=== PATIENT | male | born 1955 | race Caucasian/White ===

== ENCOUNTER 2018-03-16 00:26 | Emergency (ER) | payer OTHER ==
[2018-03-16] MEDS ORDERED: HYDROcodone/Acetaminophen 5/325 mg Tablet ONE (00:59)
--- NOTE | 2018-03-16 07:52 | RAD ---
LEFT SHOULDER 3 VIEWS: DATE: 03/16/18. COMPARISON: None. HISTORY: Pain. FINDINGS: There is joint space narrowing of the acromioclavicular interspace with superior osteophyte formation , primarily involving the distal clavicle. No widening of the coracoclavicular interspace. No acute fracture. 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 No acute fracture or disloc ation. POS: [facility]
== END 2018-03-16 01:20 | disposition home or self-care (01) ==
LOC: SCSER 00:26
DX: M25.512 Pain in left shoulder (principal); Z71.6 Tobacco abuse counseling; F17.210 Nicotine dependence, cigarettes, uncomplicated; E03.9 Hypothyroidism, unspecified; K21.9 Gastro-esophageal reflux disease without esophagitis; I10 Essential (primary) hypertension
CPT/HCPCS: 99406

== ENCOUNTER 2018-03-19 14:01 | Emergency (ER) | payer OTHER ==
[2018-03-19] MEDS ORDERED: Ondansetron ODT 8 MG TAB ONE (14:33)
[2018-03-19 14:58] LABS: #Eosinphils 0.2 thou/uL (0.0-0.7); #Lymphocytes 0.9 thou/uL (1.20-3.40); #Monocytes 0.9 thou/uL (0.11-0.59); #Neutrophils 5.4 thou/uL (1.40-6.50); %Basophils 0.4 % (0.0-1.0); %Eosinophils 3.1 % (0.0-10.0); %Lymphocytes 12.1 % (21.0-51.0); %Monocytes 12.5 % (0.0-10.0); %Neutrophils 71.9 % (42.0-75.0); Hemoglobin 13.1 g/dL (14.0-18.0); Mean Corpuscular HGB CONC 34.4 g/dL (32.0-36.0); Mean Corpuscular Hemoglobin 34.7 pg (27.0-31.0); Platelet Count 311 thou/uL (130-400); RBC Distribution Width 11.3 % (11.5-14.5); Red Blood Cell (RBC) Count 3.78 mill/uL (4.70-6.10); White Blood Cell (WBC) Count 7.4 thou/uL (4.8-10.8)
[2018-03-19 15:17] LABS: Anion Gap 14 mmol/L (10-20); BUN (Urea Nitrogen) 9 mg/dL (8.4-25.7); CRP (Inflammatory) 12.84 mg/dL (= or < 0.5); Calc. Creatinine Clearance 0 mL/min (70-130); Carbon Dioxide 26 mmol/L (23-31); Chloride 97 mmol/L (98-107); Estimated GFR-MDRD Greater than 90; Glucose 125 mg/dL (80-115); Potassium 3.8 mmol/L (3.5-5.1); Sodium 133 mmol/L (136-145); Uric Acid 7.6 mg/dL (3.5-7.2)
== END 2018-03-19 16:00 | disposition home or self-care (01) ==
LOC: ERS 14:01
DX: M10.9 Gout, unspecified (principal); E03.9 Hypothyroidism, unspecified; K21.9 Gastro-esophageal reflux disease without esophagitis; I10 Essential (primary) hypertension; F17.210 Nicotine dependence, cigarettes, uncomplicated; Z79.899 Other long term (current) drug therapy
CPT/HCPCS: 36415; 80048; 84550; 85025; 85652; 86140; 96374; J2270

== ENCOUNTER 2024-07-15 10:02 | Day surgery (SDC) | payer MEDICARE ==
[2024-07-14 09:47] VITALS: BMI 29.8
[2024-07-15 10:52] LABS: #Basophils 0.05 10x3/uL (0.0-0.2); %Basophils 0.8 % (0.0-1.0); %Eosinophils 2.6 % (0.0-10.0); %Lymphocytes 16.2 % (21.0-51.0); %Monocytes 8.2 % (0.0-10.0); %Neutrophils 71.9 % (42.0-75.0); Hematocrit 42.1 % (42.0-52.0); Hemoglobin 14.1 g/dL (14.0-18.0); Mean Corpuscular HGB CONC 33.5 g/dL (32.0-36.0); Mean Corpuscular Hemoglobin 34.5 pg (27.0-31.0); Mean Corpuscular Volume 102.9 fL (78.0-98.0); Mean Platelet Volume 9.3 fL (7.4-10.4); Platelet Count 235 10x3/uL (130-400); RBC Distribution Width 12.6 % (11.5-14.5); Red Blood Cell (RBC) Count 4.09 mill/uL (4.70-6.10)
[2024-07-15 11:07] LABS: Anion Gap 13 mmol/L (10-20); BUN (Urea Nitrogen) 10 mg/dL (8.4-25.7); Calc. Creatinine Clearance 120 mL/min (70-130); Calcium 9.6 mg/dL (7.8-10.44); Carbon Dioxide 22 mmol/L (23-31); Chloride 101 mmol/L (98-107); Estimated GFR 95; Glucose 117 mg/dL (80-115); Sodium 131 mmol/L (136-145)
[2024-07-15] MEDS ORDERED: Lidocaine 1% PF 5 ML VIAL ONE (11:09)
[2024-07-15] MEDS ORDERED: PROPOFOL 200 MG/20 ML VIAL ONE (11:09)
[2024-07-15 11:12] LABS: INR-International Normal Ratio 1.6; PTT 37.7 sec (22.9-36.1); Prothrombin Time 19.5 sec (12.0-14.7)
== END 2024-07-15 12:20 | disposition home or self-care (01) ==
LOC: SDC 10:02
PROVIDERS: ATTEND Internal Medicine Cardiovascular Disease
PROC: 5A2204Z Restoration of Cardiac Rhythm, Single (ICD-10-PCS; principal; 2024-07-15)
DX: I48.19 Other persistent atrial fibrillation (principal); I48.92 Unspecified atrial flutter; I10 Essential (primary) hypertension; I25.10 Atherosclerotic heart disease of native coronary artery without angina pectoris; E78.00 Pure hypercholesterolemia, unspecified; M10.9 Gout, unspecified; F17.210 Nicotine dependence, cigarettes, uncomplicated; Z85.46 Personal history of malignant neoplasm of prostate; Z85.828 Personal history of other malignant neoplasm of skin; Z98.890 Other specified postprocedural states; Z79.01 Long term (current) use of anticoagulants; Z79.899 Other long term (current) drug therapy; Z88.8 Allergy status to other drugs, medicaments and biological substances
CPT/HCPCS: 80048; 85025; 85610; 85730

== ENCOUNTER 2024-07-16 11:01 | Inpatient (IN) | payer MEDICARE ==
[2024-07-16] MEDS ORDERED: Nitroglycerin 0.4 MG TAB (25 Tab Bottle) SL PRN (11:52)
[2024-07-16] MEDS ORDERED: Calcium Carbonate 500 MG ChewTAB PO PRN (11:55)
[2024-07-16] MEDS ORDERED: Acetaminophen 325 MG TAB PO PRN (11:55)
[2024-07-16 11:57] VITALS: BMI 29.8
[2024-07-16] MEDS ORDERED: Labetalol HCl 100 MG/20 ML VIAL SLOW IVP PRN (12:01)
[2024-07-16] MEDS ORDERED: Lorazepam 2 MG/ML VIAL IM PRN (15:12)
[2024-07-16] MEDS ORDERED: Lorazepam 1 MG TAB PO PRN (15:12)
[2024-07-16 15:59] LABS: Troponin I 0.284 ng/mL (< 0.028)
[2024-07-16] MEDS: Carvedilol 25 MG TAB PO SCH (16:25)
[2024-07-16] MEDS: Rivaroxaban 10 MG TAB PO SCH (16:25)
[2024-07-16] MEDS: Aspirin 81 mg Enteric Coated Tablet PO SCH (16:25)
[2024-07-16] MEDS: Thiamine HCl 200 MG/2 ML VIAL SLOW IVP SCH (16:26)
[2024-07-16] MEDS: FLU (Fluad Triv) TS24-25 (65UP)/MF59C/PF 45 MCG/0.5 ML Syringe IM ONE (16:27)
[2024-07-16] MEDS: Furosemide 40 MG (4 mL) VIAL SLOW IVP SCH (16:27)
[2024-07-16] MEDS: Nitroglycerin 2% Ointment 1 INCH/1 GM Packet TOP SCH (18:22)
[2024-07-16] MEDS: Amiodarone 200 MG TAB PO SCH (20:04)
[2024-07-16] MEDS: Famotidine 20 MG TAB PO SCH (20:05)
[2024-07-16] MEDS: Folic Acid 1 MG TAB PO SCH (20:05)
[2024-07-16] MEDS: Losartan 25 MG TAB PO SCH (20:05)
[2024-07-16] MEDS: Multivit, Therapeutic 1 TAB PO SCH (20:05)
[2024-07-16] MEDS ORDERED: Thiamine 100 MG TAB PO SCH (21:00)
[2024-07-17 05:38] LABS: #Basophils Less than 0.03 10x3/uL (0.0-0.2); #Eosinophils Less than 0.03 10x3/uL (0.0-0.7); %Lymphocytes 6.7 % (21.0-51.0); %Monocytes 7.5 % (0.0-10.0); %Neutrophils 85.2 % (42.0-75.0); Hematocrit 36.9 % (42.0-52.0); Hemoglobin 12.4 g/dL (14.0-18.0); Mean Corpuscular HGB CONC 33.6 g/dL (32.0-36.0); Mean Corpuscular Hemoglobin 35.3 pg (27.0-31.0); Mean Corpuscular Volume 105.1 fL (78.0-98.0); Mean Platelet Volume 9.3 fL (7.4-10.4); Platelet Count 205 10x3/uL (130-400); RBC Distribution Width 12.7 % (11.5-14.5); Red Blood Cell (RBC) Count 3.51 mill/uL (4.70-6.10)
[2024-07-17 06:35] LABS: ALT (SGPT) 18 U/L (8-55); AST (SGOT) 20 U/L (5-34); Albumin 3.7 g/dL (3.4-4.8); Alkaline Phosphatase 94 U/L (40-110); Anion Gap 14 mmol/L (10-20); BUN (Urea Nitrogen) 22 mg/dL (8.4-25.7); Bilirubin, Total 0.8 mg/dL (0.2-1.2); Calc. Creatinine Clearance 112 mL/min (70-130); Calcium 9.6 mg/dL (7.8-10.44); Carbon Dioxide 22 mmol/L (23-31); Chloride 102 mmol/L (98-107); Estimated GFR 94; Globulin 3.2 g/dL (2.4-3.5); Glucose 156 mg/dL (80-115); Potassium 3.9 mmol/L (3.5-5.1); Protein, Total 6.9 g/dL (5.8-8.1); Sodium 134 mmol/L (136-145)
[2024-07-17 06:39] LABS: Phosphorus 3.6 mg/dL (2.3-4.7)
[2024-07-17 07:20] LABS: Troponin I 0.407 ng/mL (< 0.028)
[2024-07-17] MEDS ORDERED: Regadenoson 0.4 MG/5 ML SYRINGE ONE (11:03)
[2024-07-18 05:30] LABS: Anion Gap 18 mmol/L (10-20); BUN (Urea Nitrogen) 32 mg/dL (8.4-25.7); Calc. Creatinine Clearance 101 mL/min (70-130); Calcium 9.8 mg/dL (7.8-10.44); Carbon Dioxide 24 mmol/L (23-31); Chloride 98 mmol/L (98-107); Estimated GFR 85; Glucose 120 mg/dL (80-115); Potassium 3.1 mmol/L (3.5-5.1); Sodium 137 mmol/L (136-145)
[2024-07-18] MEDS: Potassium Chloride 20 MEQ in Premix 1 BAG IVPB SCH (06:17)
[2024-07-18] MEDS ORDERED: Enoxaparin 100 MG (1 mL) SYRINGE SC SCH (09:00)
[2024-07-18] MEDS: Potassium Chloride 20 MEQ TAB PO SCH ×2 (11:58→20:26)
[2024-07-18] MEDS ORDERED: Lorazepam 1 MG TAB PO PRN (15:12)
[2024-07-18] MEDS: Temazepam 15 MG CAP PO PRN (20:26)
[2024-07-18] MEDS: Enoxaparin 100 MG (1 mL) SYRINGE SC SCH (20:26)
[2024-07-19 05:58] LABS: Anion Gap 19 mmol/L (10-20); BUN (Urea Nitrogen) 44 mg/dL (8.4-25.7); Calc. Creatinine Clearance 73 mL/min (70-130); Calcium 9.6 mg/dL (7.8-10.44); Carbon Dioxide 23 mmol/L (23-31); Chloride 100 mmol/L (98-107); Estimated GFR 60; Glucose 119 mg/dL (80-115); Sodium 138 mmol/L (136-145)
[2024-07-19] MEDS: Thiamine 100 MG TAB PO SCH (14:00)
[2024-07-19] MEDS ORDERED: Lorazepam 0.5 MG TAB PO PRN (15:12)
[2024-07-19] MEDS ORDERED: Communication Order-Pharmacy FS SCH (18:15)
[2024-07-19] MEDS: Sodium Chloride 0.9% 1,000 ML IV SCH (21:06)
[2024-07-20 05:03] LABS: Anion Gap 14 mmol/L (10-20); BUN (Urea Nitrogen) 56 mg/dL (8.4-25.7); Calc. Creatinine Clearance 64 mL/min (70-130); Calcium 9.5 mg/dL (7.8-10.44); Carbon Dioxide 22 mmol/L (23-31); Chloride 102 mmol/L (98-107); Estimated GFR 51; Glucose 114 mg/dL (80-115); Potassium 4.3 mmol/L (3.5-5.1); Sodium 134 mmol/L (136-145)
[2024-07-20] MEDS ORDERED: Furosemide 40 MG (4 mL) VIAL SLOW IVP SCH (09:00)
[2024-07-20] MEDS ORDERED: Heparin 10,000 UNITS/ 10 ML VIAL ONE (11:09)
[2024-07-20] MEDS ORDERED: Verapamil 5 MG/2 ML VIAL ONE (11:09)
[2024-07-20] MEDS ORDERED: Nitroglycerin 50 MG/250 ML BOT 250 ML ONE (11:10)
[2024-07-20] MEDS ORDERED: Adenosine 6 mg (2 mL) VIAL ONE (11:13)
[2024-07-20] MEDS ORDERED: fentaNYL 50 mcg/mL 1 mL Vial ONE (11:51)
[2024-07-20] MEDS ORDERED: Midazolam HCl 2 mg/2 ml Vial ONE (11:51)
[2024-07-20] MEDS ORDERED: TICAGRELOR 90 MG TABLET ONE (12:26)
[2024-07-20] MEDS: Sodium Chloride 0.9% 500 ML IV SCH (14:41)
[2024-07-20 15:42] VITALS: TEMP 97.8
[2024-07-20 17:59] VITALS: BP 143/71
[2024-07-20] MEDS ORDERED: Rosuvastatin 10 MG TAB PO SCH (21:00)
[2024-07-21] MEDS ORDERED: Aspirin Chewable 81 MG TAB PO SCH (09:00)
[2024-07-21] MEDS ORDERED: Rivaroxaban 10 MG TAB PO SCH (09:00)
[2024-07-21] MEDS ORDERED: Clopidogrel Bisulfate 75 MG TAB PO SCH (09:00)
== END 2024-07-20 18:00 | disposition home or self-care (01) | DRG 321 ==
LOC: 2NO 11:01
PROVIDERS: ADMIT Internal Medicine; ATTEND Family Medicine
PROC: 4A023N7 Measurement of Cardiac Sampling and Pressure, Left Heart, Percutaneous Approach (ICD-10-PCS; principal; 2024-07-20)
PROC: 027034Z Dilation of Coronary Artery, One Artery with Drug-eluting Intraluminal Device, Percutaneous Approach (ICD-10-PCS; 2024-07-20)
PROC: B2151ZZ Fluoroscopy of Left Heart using Low Osmolar Contrast (ICD-10-PCS; 2024-07-20)
PROC: B2111ZZ Fluoroscopy of Multiple Coronary Arteries using Low Osmolar Contrast (ICD-10-PCS; 2024-07-20)
DX: I11.0 Hypertensive heart disease with heart failure (principal); I50.21 Acute systolic (congestive) heart failure; J96.01 Acute respiratory failure with hypoxia; I48.20 Chronic atrial fibrillation, unspecified; N17.9 Acute kidney failure, unspecified; I48.92 Unspecified atrial flutter; F10.20 Alcohol dependence, uncomplicated; I25.10 Atherosclerotic heart disease of native coronary artery without angina pectoris; Z79.899 Other long term (current) drug therapy; I16.0 Hypertensive urgency; I44.0 Atrioventricular block, first degree; C61 Malignant neoplasm of prostate; I42.0 Dilated cardiomyopathy
CPT/HCPCS: 36415; 71045; 78452; 80048; 80053; 82805; 83735; 83880; 84100; 84484; 85025; 85347; 85610; 85730; 92928; 92960; 93005; 93010; 93017; 93306; 93458; 96374; 96375; 99152; 99153; A9500; C1769; C1874; C1887; C1894; C9600; J0153; J0360; J1644; J1650; J1940; J2250; J2704; J2785; J3010; J3411; J3480; J7030

== ENCOUNTER 2024-08-17 08:51 | Outpatient (CLI) | payer MEDICARE | END 2024-08-17 08:52 | disposition home or self-care (01) | LOC: CT 08:51 | PROVIDERS: ATTEND Physician Assistant Medical | DX: I48.0 Paroxysmal atrial fibrillation (principal) | CPT/HCPCS: 70450 ==

== ENCOUNTER 2024-08-20 23:57 | Inpatient (IN) | payer MEDICARE ==
[2024-08-21 01:09] VITALS: BMI 29.0
[2024-08-21] MEDS ORDERED: Glucagon 1 MG/ML KIT IM PRN (02:21)
[2024-08-21] MEDS ORDERED: Dextrose 5% in Water 1,000 ML IV PRN (02:21)
[2024-08-21] MEDS ORDERED: Promethazine HCl 25 MG/ML VIAL IM PRN (02:21)
[2024-08-21] MEDS ORDERED: Ondansetron PF 4 MG/2 ML Vial IVP PRN (02:21)
[2024-08-21] MEDS ORDERED: Dextrose 50% Abboject 50 ML SYRINGE SLOW IVP PRN (02:21)
[2024-08-21] MEDS ORDERED: Morphine 2 MG/ML VIAL SLOW IVP PRN (02:21)
[2024-08-21] MEDS: HYDROmorphone 0.5 MG/0.5 ML SYRINGE SLOW IVP SCH (02:34)
[2024-08-21] MEDS: Sodium Chloride 0.9% 1,000 ML IV SCH (02:34)
[2024-08-21] MEDS: TETANUS AND DIPHTHERIA TOX/PF 0.5 ML DISP.SYRIN IM SCH (02:56)
[2024-08-21] MEDS: hydrALAZINE 20 MG/ML VIAL SLOW IVP SCH (02:59)
[2024-08-21] MEDS ORDERED: TETANUS, DIPHTHERIA TOX,ADULT (TDVAX) 0.5 ML VIAL IM ONE (03:00)
[2024-08-21] MEDS: traMADol HCl 50 MG TAB PO PRN (03:03)
[2024-08-21] MEDS: Morphine 4 MG/ML VIAL SLOW IVP SCH (04:21)
[2024-08-21 04:25] LABS: #Basophils 0.05 10x3/uL (0.0-0.2); %Basophils 0.5 % (0.0-1.0); %Eosinophils 1.6 % (0.0-10.0); %Lymphocytes 7.2 % (21.0-51.0); %Monocytes 8.2 % (0.0-10.0); %Neutrophils 82.1 % (42.0-75.0); Hematocrit 32.2 % (42.0-52.0); Hemoglobin 10.8 g/dL (14.0-18.0); Mean Corpuscular HGB CONC 33.5 g/dL (32.0-36.0); Mean Corpuscular Hemoglobin 32.7 pg (27.0-31.0); Mean Corpuscular Volume 97.6 fL (78.0-98.0); Platelet Count 312 10x3/uL (130-400); RBC Distribution Width 13.1 % (11.5-14.5)
[2024-08-21 04:46] LABS: ALT (SGPT) 10 U/L (8-55); AST (SGOT) 13 U/L (5-34); Albumin 3.7 g/dL (3.4-4.8); Alkaline Phosphatase 149 U/L (40-110); Anion Gap 14 mmol/L (10-20); BUN (Urea Nitrogen) 10 mg/dL (8.4-25.7); Bilirubin, Total 1.1 mg/dL (0.2-1.2); Calc. Creatinine Clearance 133 mL/min (70-130); Calcium 9.7 mg/dL (7.8-10.44); Carbon Dioxide 21 mmol/L (23-31); Chloride 99 mmol/L (98-107); Estimated GFR 99; Glucose 117 mg/dL (80-115); Potassium 3.8 mmol/L (3.5-5.1); Protein, Total 7.7 g/dL (5.8-8.1); Sodium 130 mmol/L (136-145)
[2024-08-21] MEDS: Ketorolac Tromethamine 30 MG (1 mL) VIAL IVP SCH (06:01)
[2024-08-21] MEDS: Acetaminophen 325 MG TAB PO PRN (08:30)
[2024-08-21] MEDS: hydrALAZINE 20 MG/ML VIAL SLOW IVP PRN (08:30)
[2024-08-21] MEDS ORDERED: Non-Formulary Item 1 EACH (Losartan [Cozaar] 50 MG Tab) PO SCH (09:53)
[2024-08-21 10:10] LABS: Bacteria/HPF None Seen HPF (None Seen); Bilirubin Negative (Negative); Blood, Urine Negative (Negative); CAUTI Indications for Culture Dysuria,urgency,freq; Clarity Clear (Clear); Glucose, Urine (Dipstick) Normal (Negative); Ketone, Urine Negative (Negative); Leukocyte Negative Leu/uL (Negative); Nitrite Negative (Negative); Protein, Urine (Dipstick) 30 mg/dL (Neg-Trace); RBC/HPF 0-3 HPF (0-3); Specific Gravity, Urine 1.034 (1.002-1.036); Squamous Epithelial None Seen HPF (0-3); Urobilinogen Normal mg/dL (Less than 2); WBC/HPF 0-3 HPF (0-3); pH, Urine 6.5 (5.0-9.0)
[2024-08-21 10:15] LABS: Urine Culture Reflex No No
[2024-08-21] MEDS: Piperacillin/Tazobactam 3.375 GM in Sodium Chloride 0.9% 100 ML IVPB SCH ×2 (10:29→14:11)
[2024-08-21] MEDS: Carvedilol 25 MG TAB PO SCH (10:29)
[2024-08-21] MEDS ORDERED: Piperacillin/Tazobactam 3.375 GM in Sodium Chloride 0.9% 100 ML IVPB SCH (12:00)
[2024-08-21] MEDS: Clopidogrel Bisulfate 75 MG TAB PO SCH (17:50)
[2024-08-21] MEDS: Losartan 25 MG TAB PO SCH (21:10)
[2024-08-22 05:06] LABS: #Basophils 0.05 10x3/uL (0.0-0.2); %Basophils 0.3 % (0.0-1.0); %Eosinophils 0.5 % (0.0-10.0); %Lymphocytes 3.8 % (21.0-51.0); %Monocytes 5.6 % (0.0-10.0); Hematocrit 27.1 % (42.0-52.0); Hemoglobin 9.1 g/dL (14.0-18.0); Mean Corpuscular HGB CONC 33.6 g/dL (32.0-36.0); Mean Corpuscular Hemoglobin 33.1 pg (27.0-31.0); Mean Corpuscular Volume 98.5 fL (78.0-98.0); Mean Platelet Volume 8.9 fL (7.4-10.4); Platelet Count 249 10x3/uL (130-400); RBC Distribution Width 13.5 % (11.5-14.5); Red Blood Cell (RBC) Count 2.75 mill/uL (4.70-6.10)
[2024-08-22 05:26] LABS: ALT (SGPT) 8 U/L (8-55); AST (SGOT) 12 U/L (5-34); Alkaline Phosphatase 101 U/L (40-110); Anion Gap 17 mmol/L (10-20); BUN (Urea Nitrogen) 20 mg/dL (8.4-25.7); Bilirubin, Direct 0.6 mg/dL (0.1-0.3); Bilirubin, Total 1.4 mg/dL (0.2-1.2); Calc. Creatinine Clearance 101 mL/min (70-130); Calcium 8.8 mg/dL (7.8-10.44); Carbon Dioxide 18 mmol/L (23-31); Chloride 101 mmol/L (98-107); Estimated GFR 86; Glucose 93 mg/dL (80-115); Potassium 3.7 mmol/L (3.5-5.1); Protein, Total 6.8 g/dL (5.8-8.1); Sodium 132 mmol/L (136-145)
[2024-08-22] MEDS ORDERED: Bupivacaine 0.25% HCL 30 ML VIAL ONE (14:32)
[2024-08-22] MEDS ORDERED: EPINEPHrine 1 MG/ML VIAL ONE (14:32)
[2024-08-22] MEDS ORDERED: Promethazine HCl 25 MG/ML VIAL IM PRN (15:48)
[2024-08-22] MEDS ORDERED: Ondansetron HCl/PF 4 MG/2 ML Vial IVP PRN (15:48)
[2024-08-22] MEDS ORDERED: Rocuronium Bromide 10 MG/ML (10ML VIAL) ONE (16:34)
[2024-08-22] MEDS ORDERED: Dexamethasone 4 mg/ml Vial ONE (16:34)
[2024-08-22] MEDS ORDERED: Lidocaine 1% PF 5 ML VIAL ONE (16:34)
[2024-08-22] MEDS ORDERED: fentaNYL PF 100 MCG/2 ML SYRINGE ONE (16:34)
[2024-08-22] MEDS ORDERED: PROPOFOL 40 ML ONE (16:34)
[2024-08-22] MEDS ORDERED: SUGAMMADEX SODIUM 200 MG/2 ML VIAL ONE (16:34)
[2024-08-22] MEDS ORDERED: Ondansetron PF 4 MG/2 ML Vial ONE (16:34)
[2024-08-22] MEDS ORDERED: ePHEDrine Sulfate 50 MG/10 ML VIAL ONE (16:40)
[2024-08-22] MEDS ORDERED: PHENYLEPHRINE-NS 100 MCG/ML 10 ML SYRINGE ONE (16:55)
[2024-08-22] MEDS ORDERED: Vasopressin 20 UNITS/ML VIAL ONE (17:01)
[2024-08-22] MEDS ORDERED: Mag-Al 1200 mg/1200 mg/30 ML UDCUP PO PRN (18:09)
[2024-08-22] MEDS ORDERED: Dextrose 5% in Water 1,000 ML IV PRN (18:09)
[2024-08-22] MEDS ORDERED: fentaNYL 50 mcg/mL 1 mL Vial ONE ×2 (18:09→18:28)
[2024-08-22] MEDS ORDERED: Glucagon 1 MG/ML KIT IM PRN (18:09)
[2024-08-22] MEDS ORDERED: Dextrose 50% Abboject 50 ML SYRINGE SLOW IVP PRN (18:09)
[2024-08-22] MEDS ORDERED: Ondansetron PF 4 MG/2 ML Vial IVP PRN (18:09)
[2024-08-22] MEDS ORDERED: Ipratropium/Albuterol 3 ML NEB ONE (18:09)
[2024-08-22] MEDS ORDERED: Aspirin 81 mg Enteric Coated Tablet PO SCH (19:00)
[2024-08-22] MEDS ORDERED: Morphine 2 MG/ML VIAL SLOW IVP PRN (19:18)
[2024-08-22] MEDS: D5 1/2 NS w/20 mEq KCL 1,000 ML IV SCH (19:43)
[2024-08-22] MEDS: Morphine 2 MG/ML VIAL SLOW IVP SCH (19:43)
[2024-08-22] MEDS: Famotidine 20 MG TAB PO SCH (19:44)
[2024-08-22] MEDS: Aspirin 81 mg Enteric Coated Tablet PO SCH (19:44)
[2024-08-22 20:03] LABS: #Basophils Less than 0.03 10x3/uL (0.0-0.2); %Basophils 0.2 % (0.0-1.0); %Eosinophils 0.4 % (0.0-10.0); %Lymphocytes 2.9 % (21.0-51.0); %Monocytes 3.7 % (0.0-10.0); %Neutrophils 92.4 % (42.0-75.0); Hematocrit 30.6 % (42.0-52.0); Hemoglobin 9.7 g/dL (14.0-18.0); Mean Corpuscular HGB CONC 31.7 g/dL (32.0-36.0); Mean Corpuscular Hemoglobin 32.7 pg (27.0-31.0); Mean Platelet Volume 9.2 fL (7.4-10.4); Platelet Count 294 10x3/uL (130-400); RBC Distribution Width 13.8 % (11.5-14.5); Red Blood Cell (RBC) Count 2.97 mill/uL (4.70-6.10)
[2024-08-22] MEDS: HYDROcodone/Acetaminophen 10/325 mg Tablet PO PRN (20:29)
[2024-08-22] MEDS ORDERED: Ketorolac Tromethamine 30 MG (1 mL) VIAL IVP SCH (23:59)
[2024-08-23] MEDS: Furosemide 40 MG (4 mL) VIAL SLOW IVP SCH ×2 (03:10→09:18)
[2024-08-23] MEDS: Ipratropium/Albuterol 3 ML NEB NEB PRN (03:27)
[2024-08-23 05:10] LABS: #Basophils Less than 0.03 10x3/uL (0.0-0.2); #Eosinophils Less than 0.03 10x3/uL (0.0-0.7); %Basophils 0.2 % (0.0-1.0); %Lymphocytes 1.9 % (21.0-51.0); %Monocytes 4.9 % (0.0-10.0); %Neutrophils 92.3 % (42.0-75.0); Mean Corpuscular Hemoglobin 32.3 pg (27.0-31.0); Mean Corpuscular Volume 100.8 fL (78.0-98.0); Mean Platelet Volume 9.4 fL (7.4-10.4); Platelet Count 258 10x3/uL (130-400); RBC Distribution Width 13.6 % (11.5-14.5); Red Blood Cell (RBC) Count 2.48 mill/uL (4.70-6.10)
[2024-08-23 05:26] LABS: ALT (SGPT) 12 U/L (8-55); AST (SGOT) 24 U/L (5-34); Albumin 2.7 g/dL (3.4-4.8); Alkaline Phosphatase 82 U/L (40-110); Anion Gap 15 mmol/L (10-20); BUN (Urea Nitrogen) 25 mg/dL (8.4-25.7); Bilirubin, Total 1.1 mg/dL (0.2-1.2); Calc. Creatinine Clearance 100 mL/min (70-130); Calcium 8.7 mg/dL (7.8-10.44); Carbon Dioxide 18 mmol/L (23-31); Chloride 102 mmol/L (98-107); Estimated GFR 85; Globulin 3.8 g/dL (2.4-3.5); Glucose 136 mg/dL (80-115); Magnesium 1.6 mg/dL (1.6-2.6); Protein, Total 6.5 g/dL (5.8-8.1); Sodium 131 mmol/L (136-145)
[2024-08-23] MEDS: Enoxaparin 30 MG (0.3 mL) SYRINGE SC SCH (09:17)
[2024-08-23] MEDS: Clopidogrel Bisulfate 75 MG TAB PO SCH (09:18)
[2024-08-23] MEDS: Tamsulosin HCl 0.4 MG CAP PO SCH (09:28)
[2024-08-23 16:32] VITALS: BP 121/72; TEMP 98.2
== END 2024-08-23 19:09 | disposition home or self-care (01) | DRG 419 ==
LOC: SURG A 08-21 00:52
PROVIDERS: ADMIT Surgery; ATTEND Surgery
PROC: 0FT44ZZ Resection of Gallbladder, Percutaneous Endoscopic Approach (ICD-10-PCS; principal; 2024-08-22)
PROC: 8E0W4CZ Robotic Assisted Procedure of Trunk Region, Percutaneous Endoscopic Approach (ICD-10-PCS; 2024-08-22)
DX: K80.00 Calculus of gallbladder with acute cholecystitis without obstruction (principal); I16.0 Hypertensive urgency; I25.10 Atherosclerotic heart disease of native coronary artery without angina pectoris; E78.5 Hyperlipidemia, unspecified; I10 Essential (primary) hypertension; I48.91 Unspecified atrial fibrillation; R33.9 Retention of urine, unspecified; Z79.82 Long term (current) use of aspirin; Z79.899 Other long term (current) drug therapy; Z95.5 Presence of coronary angioplasty implant and graft; Z85.46 Personal history of malignant neoplasm of prostate; Z87.891 Personal history of nicotine dependence
CPT/HCPCS: 36415; 71045; 74177; 76705; 80048; 80053; 80076; 81001; 83605; 83690; 83735; 83880; 84484; 85025; 88304; 93005; 93010; 94640; 96374; 96375; 96376; C1889; J0171; J0360; J0665; J1100; J1650; J1885; J1940; J2272; J2405; J2543; J2704; J3010; J3480; J7030; J7620; Q9967; S2900

== ENCOUNTER 2024-09-23 10:36 | Inpatient (IN) | payer MEDICARE ==
[2024-09-23] MEDS ORDERED: Iopamidol-370 76% 500 ML MDV (1 ML CHARGE) ONE (10:47)
[2024-09-23 12:31] LABS: #Basophils 0.06 10x3/uL (0.0-0.2); %Eosinophils 4.5 % (0.0-10.0); %Lymphocytes 19.3 % (21.0-51.0); %Monocytes 8.9 % (0.0-10.0); Hematocrit 23.8 % (42.0-52.0); Hemoglobin 7.5 g/dL (14.0-18.0); Mean Corpuscular HGB CONC 31.5 g/dL (32.0-36.0); Mean Corpuscular Hemoglobin 29.6 pg (27.0-31.0); Mean Corpuscular Volume 94.1 fL (78.0-98.0); Mean Platelet Volume 9.2 fL (7.4-10.4); Platelet Count 341 10x3/uL (130-400); Red Blood Cell (RBC) Count 2.53 mill/uL (4.70-6.10)
[2024-09-23 12:45] LABS: INR-International Normal Ratio 1.1; PTT 34.9 sec (22.9-36.1); Prothrombin Time 13.8 sec (12.0-14.7)
[2024-09-23 12:50] LABS: ALT (SGPT) 10 U/L (8-55); AST (SGOT) 18 U/L (5-34); Albumin 3.3 g/dL (3.4-4.8); Alkaline Phosphatase 147 U/L (40-110); Anion Gap 13 mmol/L (10-20); BUN (Urea Nitrogen) 15 mg/dL (8.4-25.7); Bilirubin, Total 0.5 mg/dL (0.2-1.2); Calc. Creatinine Clearance 0 mL/min (70-130); Calcium 9.4 mg/dL (7.8-10.44); Carbon Dioxide 22 mmol/L (23-31); Chloride 106 mmol/L (98-107); Estimated GFR 102; Globulin 3.9 g/dL (2.4-3.5); Glucose 116 mg/dL (80-115); Potassium 3.6 mmol/L (3.5-5.1); Protein, Total 7.2 g/dL (5.8-8.1); Sodium 137 mmol/L (136-145)
[2024-09-23 12:54] LABS: Troponin I 0.012 ng/mL (< 0.028)
[2024-09-23] MEDS ORDERED: Pantoprazole 80 MG, Admixture Fee 1 EACH in Sodium Chloride 0.9% 100 ML IVPB SCH (13:30)
[2024-09-23] MEDS ORDERED: Ondansetron ODT 4 MG TAB PO PRN (16:26)
[2024-09-23] MEDS ORDERED: Acetaminophen 325 MG TAB PO PRN (16:26)
[2024-09-23 18:10] LABS: Hematocrit 27.3 % (42.0-52.0); Hemoglobin 8.5 g/dL (14.0-18.0)
[2024-09-23] MEDS: Sodium Chloride 0.9% 1,000 ML IV SCH (18:40)
[2024-09-23] MEDS: Pantoprazole 40 MG VIAL IVP SCH (20:17)
[2024-09-23 20:18] VITALS: BMI 28.0
[2024-09-23 22:32] LABS: Hematocrit 24.4 % (42.0-52.0); Hemoglobin 7.9 g/dL (14.0-18.0)
[2024-09-24 05:56] LABS: #Basophils 0.07 10x3/uL (0.0-0.2); %Basophils 1.1 % (0.0-1.0); %Lymphocytes 14.2 % (21.0-51.0); %Monocytes 8.4 % (0.0-10.0); %Neutrophils 71.8 % (42.0-75.0); Hemoglobin 7.8 g/dL (14.0-18.0); Mean Corpuscular HGB CONC 31.2 g/dL (32.0-36.0); Mean Corpuscular Hemoglobin 29.7 pg (27.0-31.0); Mean Corpuscular Volume 95.1 fL (78.0-98.0); Mean Platelet Volume 9.2 fL (7.4-10.4); Platelet Count 293 10x3/uL (130-400); RBC Distribution Width 16.3 % (11.5-14.5); Red Blood Cell (RBC) Count 2.63 mill/uL (4.70-6.10)
[2024-09-24 06:35] LABS: Anion Gap 14 mmol/L (10-20); BUN (Urea Nitrogen) 10 mg/dL (8.4-25.7); Calc. Creatinine Clearance 151 mL/min (70-130); Calcium 8.7 mg/dL (7.8-10.44); Carbon Dioxide 20 mmol/L (23-31); Chloride 107 mmol/L (98-107); Estimated GFR 104; Glucose 98 mg/dL (80-115); Potassium 3.4 mmol/L (3.5-5.1); Sodium 138 mmol/L (136-145)
[2024-09-24] MEDS ORDERED: Carvedilol 25 MG TAB PO SCH ×2 (09:00)
[2024-09-24] MEDS ORDERED: Losartan 25 MG TAB PO SCH ×3 (09:00→21:00)
[2024-09-24] MEDS: Losartan 25 MG TAB PO SCH ×2 (09:20→20:33)
[2024-09-24] MEDS: Carvedilol 6.25 MG TAB PO SCH (09:20)
[2024-09-24 09:46] LABS: Magnesium 1.7 mg/dL (1.6-2.6)
[2024-09-24 10:16] LABS: Hematocrit 25.7 % (42.0-52.0); Hemoglobin 8.2 g/dL (14.0-18.0)
[2024-09-24] MEDS ORDERED: hydrALAZINE 25 MG TAB PO PRN (14:46)
[2024-09-24] MEDS ORDERED: Furosemide 40 MG TAB PO PRN (15:35)
[2024-09-24] MEDS ORDERED: Potassium Chloride 20 MEQ TAB PO PRN (15:42)
[2024-09-24] MEDS: Furosemide 40 MG TAB PO SCH (15:53)
[2024-09-24] MEDS: Clopidogrel Bisulfate 75 MG TAB PO SCH (15:53)
[2024-09-24] MEDS: Potassium Chloride 20 MEQ TAB PO SCH (15:54)
[2024-09-24] MEDS: Aspirin 81 mg Enteric Coated Tablet PO SCH (15:54)
[2024-09-24] MEDS: GoLYTELY 4,000 ml Bottle PO SCH (17:50)
[2024-09-24] MEDS: Pantoprazole 40 MG VIAL IVP SCH (20:34)
[2024-09-24] MEDS ORDERED: Amlodipine 5 MG TAB PO SCH (21:00)
[2024-09-25 06:20] LABS: #Basophils 0.04 10x3/uL (0.0-0.2); %Basophils 0.7 % (0.0-1.0); %Eosinophils 4.7 % (0.0-10.0); %Lymphocytes 14.7 % (21.0-51.0); %Monocytes 9.8 % (0.0-10.0); %Neutrophils 69.9 % (42.0-75.0); Hematocrit 27.3 % (42.0-52.0); Hemoglobin 8.6 g/dL (14.0-18.0); Mean Corpuscular HGB CONC 31.5 g/dL (32.0-36.0); Mean Corpuscular Hemoglobin 29.3 pg (27.0-31.0); Mean Corpuscular Volume 92.9 fL (78.0-98.0); Mean Platelet Volume 9.1 fL (7.4-10.4); Platelet Count 321 10x3/uL (130-400); RBC Distribution Width 15.9 % (11.5-14.5); Red Blood Cell (RBC) Count 2.94 mill/uL (4.70-6.10)
[2024-09-25 06:32] LABS: Anion Gap 16 mmol/L (10-20); BUN (Urea Nitrogen) 6 mg/dL (8.4-25.7); Calc. Creatinine Clearance 154 mL/min (70-130); Calcium 9.5 mg/dL (7.8-10.44); Carbon Dioxide 21 mmol/L (23-31); Chloride 103 mmol/L (98-107); Estimated GFR 105; Glucose 102 mg/dL (80-115); Magnesium 1.6 mg/dL (1.6-2.6); Potassium 3.6 mmol/L (3.5-5.1); Sodium 136 mmol/L (136-145)
[2024-09-25] MEDS ORDERED: hydrALAZINE 20 MG/ML VIAL ONE (07:52)
[2024-09-25] MEDS ORDERED: Midazolam HCl 2 mg/2 ml Vial ONE (08:05)
[2024-09-25] MEDS ORDERED: PROPOFOL 20 ML ONE ×3 (08:12→08:55)
[2024-09-25] MEDS ORDERED: Lidocaine 2% PF 5 ML VIAL ONE (08:12)
[2024-09-25] MEDS ORDERED: ePHEDrine Sulfate 50 MG/10 ML VIAL ONE (08:13)
[2024-09-25] MEDS ORDERED: fentaNYL 50 mcg/mL 1 mL Vial ONE (08:29)
[2024-09-25] MEDS ORDERED: Losartan 25 MG TAB PO SCH (09:00)
[2024-09-25] MEDS: Sodium Ferric Gluconate 250 MG in Sodium Chloride 0.9% 250 ML 250 ML IVPB SCH (11:39)
[2024-09-25 15:06] VITALS: BP 159/71; TEMP 98
[2024-09-26] MEDS ORDERED: Pantoprazole DR 40 MG TAB PO SCH (09:00)
== END 2024-09-25 15:00 | disposition home or self-care (01) | DRG 378 ==
LOC: ERS 10:36 → ERHOLD 13:05 → T4-B 16:49 → OBSVTOIN 22:30
PROVIDERS: ADMIT Family Medicine; ATTEND Internal Medicine
PROC: 30233N1 Transfusion of Nonautologous Red Blood Cells into Peripheral Vein, Percutaneous Approach (ICD-10-PCS; 2024-09-23)
PROC: 0DJ08ZZ Inspection of Upper Intestinal Tract, Via Natural or Artificial Opening Endoscopic (ICD-10-PCS; principal; 2024-09-25)
PROC: 0DBL8ZZ Excision of Transverse Colon, Via Natural or Artificial Opening Endoscopic (ICD-10-PCS; 2024-09-25)
DX: K31.811 Angiodysplasia of stomach and duodenum with bleeding (principal); D62 Acute posthemorrhagic anemia; I48.91 Unspecified atrial fibrillation; I25.10 Atherosclerotic heart disease of native coronary artery without angina pectoris; J44.9 Chronic obstructive pulmonary disease, unspecified; E03.9 Hypothyroidism, unspecified; Z90.49 Acquired absence of other specified parts of digestive tract; Z98.890 Other specified postprocedural states; K57.90 Diverticulosis of intestine, part unspecified, without perforation or abscess without bleeding; F17.220 Nicotine dependence, chewing tobacco, uncomplicated; Z88.1 Allergy status to other antibiotic agents; Z88.2 Allergy status to sulfonamides; M19.90 Unspecified osteoarthritis, unspecified site; Z79.899 Other long term (current) drug therapy; K63.5 Polyp of colon; K64.8 Other hemorrhoids
CPT/HCPCS: 36415; 36430; 71045; 74177; 80048; 80053; 82274; 83735; 83880; 84484; 85025; 85046; 85610; 85730; 86850; 86900; 86901; 88305; 93005; 96374; C1889; G0378; J0360; J2250; J2470; J2704; J2916; J3010; J7030; J7050; P9016; Q9967